=== PATIENT | female | born 1980 | race Caucasian/White ===

== ENCOUNTER → 2023-09-17 | Outpatient (CLI) | payer OTHER | LOC: M WHC 10:29 | PROVIDERS: ATTEND Physician Assistant | DX: Z12.31 Encounter for screening mammogram for malignant neoplasm of breast (principal) ==

== ENCOUNTER 2024-09-05 08:41 | Day surgery (SDC) | payer OTHER ==
[~2024-09-05] VITALS: Ht 157.5 cm; Wt 58.0 kg
[~2024-09-05 08:41] MED LIST: AZEL1SPR3 NARES; AZEL205.5 NS; FLON1SPR; MAGN200T PO; OMEG10002 PO; THERTAB52 PO; VITA100093 PO; collagen powder PO
[2024-09-05 10:35] VITALS: TEMP 98
[2024-09-05] MEDS ORDERED: LIDOCAINE 2% 100MG/5ML SDV (FOR ANES.) As Ordered ONE (10:46)
[2024-09-05] MEDS ORDERED: propofoL 500 MG/50 ML VIAL As Ordered ONE (10:46)
[2024-09-05 11:01] VITALS: BP 118/60; O2SAT 100
== END 2024-09-05 11:05 | disposition home or self-care (01) ==
LOC: M OPP 08:41
PROVIDERS: ATTEND Internal Medicine Gastroenterology
DX: K63.5 Polyp of colon (principal); K57.30 Diverticulosis of large intestine without perforation or abscess without bleeding; K64.8 Other hemorrhoids; Z86.0100 Personal history of colon polyps, unspecified; Z88.0 Allergy status to penicillin; Z79.899 Other long term (current) drug therapy

== ENCOUNTER → 2024-09-25 | Outpatient (CLI) | payer OTHER | LOC: M WHC 16:00 | DX: Z12.31 Encounter for screening mammogram for malignant neoplasm of breast (principal) ==